=== PATIENT | male | born 1940 ===

== ENCOUNTER 2016-08-14 14:49 | Outpatient (CLI) | payer MEDICARE, OTHER | END 2016-08-14 14:50 | disposition home or self-care (01) | LOC: NC 14:49 | PROVIDERS: ATTEND Family Medicine | DX: E11.52 Type 2 diabetes mellitus with diabetic peripheral angiopathy with gangrene (principal); Z71.3 Dietary counseling and surveillance; Z68.23 Body mass index [BMI] 23.0-23.9, adult; I10 Essential (primary) hypertension; N17.9 Acute kidney failure, unspecified; I73.9 Peripheral vascular disease, unspecified; L02.612 Cutaneous abscess of left foot; I25.10 Atherosclerotic heart disease of native coronary artery without angina pectoris; E78.00 Pure hypercholesterolemia, unspecified; D64.9 Anemia, unspecified; K27.9 Peptic ulcer, site unspecified, unspecified as acute or chronic, without hemorrhage or perforation ==